=== PATIENT | male | born 1975 | race Two or more races ===

== ENCOUNTER → 2019-08-19 | Emergency (ER) | payer SELFPAY ==
[~2019-08-19] VITALS: Ht 170.2 cm; Wt 61.2 kg
[~2019-08-19] MED LIST: AZITHROMYCIN 250 MG TAB PO ONE; ONDANSETRON ODT 4 MG TAB PO ONE
[2019-08-19 13:47] LABS: Basophils # (auto) 0 10 ^3/uL (0-0.2); Basophils % (auto) 0.1 % (0.0-2.0); Eosinophils # (auto) 0 10 ^3/uL (0-0.8); Hematocrit 44.5 % (41.0-53.0); Hemoglobin 14.9 g/dL (13.5-17.5); Lymphocytes % (auto) 9.1 % (10.0-50.0); Mean Corpuscular Hemoglobin 29.5 pg (28.0-32.0); Mean Corpuscular Hgb Conc. 33.5 g/dL (32.0-36.0); Mean Corpuscular Volume 88.1 fL (80.0-100.0); Monocytes # (auto) 0.9 10 ^3/uL (0-1.3); Monocytes % (auto) 7.6 % (0.0-12.0); Neutrophils # (auto) 9.5 10 ^3/uL (1.6-8.6); Neutrophils % (auto) 83.2 % (37.0-80.0); Nucleated Red Blood Cells % 0.2 %; Platelet Count (auto) 216 10^3/uL (140-450); Red Blood Cells 5.05 10^6/uL (4.5-5.90); Red Cell Distribution Width 13.7 % (11.8-14.3); White Blood Cell 11.4 10^3/uL (4.4-10.8)
[2019-08-19 13:59] LABS: Albumin 4.4 g/dL (3.4-5.0); Calcium 9.4 mg/dL (8.5-10.1); Magnesium 2.6 mg/dL (1.6-2.6); Potassium 3.9 mmol/L (3.5-5.1)
[2019-08-19 14:06] LABS: BUN/Creatinine Ratio 18.4; Bilirubin, Total 0.8 mg/dL (0.2-1.0); Total Protein 8.8 g/dL (6.4-8.2)
[2019-08-19 14:23] LABS: Salicylate < 1.7 mg/dL (2.8-20.0)
[2019-08-19 14:27] LABS: Acetaminophen < 2.0 ug/mL (10-30)
[2019-08-19 16:11] LABS: Urine WBC None Seen /hpf (0 - 3)
[2019-08-19 16:23] LABS: Urine Bacteria NONE SEEN /hpf (None Seen); Urine Blood Negative /uL (Negative); Urine Hyaline Cast FEW /lpf (0 - 2); Urine Specific Gravity 1.031 (1.001-1.035); Urine Sperm PRESENT /hpf (None Seen)
[2019-08-19 16:34] LABS: Amphetamine Screen, Urine POSITIVE (NEGATIVE); Barbiturate Scree,Urine NEGATIVE (NEGATIVE); Benzodiazephine Screen, Urine NEGATIVE (NEGATIVE); Cannabinoid Screen, Urine NEGATIVE (NEGATIVE); Cocaine Screen, Urine NEGATIVE (NEGATIVE); Opiate Scree,Urine NEGATIVE (NEGATIVE); Phencyclidine Screen, Urine NEGATIVE (NEGATIVE)
[2019-08-21] MEDS: OLANZapine 5 MG TAB PO SCH (10:37)
[2019-08-21] MEDS: LORazepam 0.5 MG TAB PO SCH (10:37)
[2019-08-21] MEDS: AZITHROMYCIN 250 MG TAB PO SCH (10:37)
[2019-08-22] MEDS: LORazepam 0.5 MG TAB PO SCH ×2 (09:54→10:00)
[2019-08-22] MEDS: OLANZapine 5 MG TAB PO SCH ×2 (09:54→10:00)
[2019-08-22] MEDS: AZITHROMYCIN 250 MG TAB PO SCH (10:00)
[2019-08-23] MEDS: LORazepam 0.5 MG TAB PO SCH (01:38)
[2019-08-23] MEDS: OLANZapine 5 MG TAB PO SCH (01:38)
[2019-08-23 09:42] VITALS: BP 107/59
== END | disposition home or self-care (01) ==
LOC: ER 11:28 → EDBD 11:28
DX: F31.9 Bipolar disorder, unspecified (principal); R45.851 Suicidal ideations; F17.210 Nicotine dependence, cigarettes, uncomplicated; F12.10 Cannabis abuse, uncomplicated; Z59.0 Homelessness
CPT/HCPCS: 36415; 71045; 80053; 80307; 80320; 80329; 81001; 83605; 83735; 85025; 87040; 87804; 87880; 99285; Q0162